=== PATIENT | female | born 1975 | race American Indian/Alaskan Native ===

== ENCOUNTER 2021-05-06 08:55 | Emergency (ER) | payer OTHER ==
[2021-05-06] MEDS ORDERED: ONDANSETRON 4 MG/2 ML INJ IV ONE (10:40)
[2021-05-06] MEDS ORDERED: SODIUM CHLORIDE 0.9% 1000 ML 1,000 ML IV ONE (10:40)
[2021-05-06] MEDS ORDERED: KETOROLAC 30 MG/1 ML INJ IV ONE (10:40)
--- NOTE | 2021-05-06 10:41 | Emergency Department Report ---
ED General Adult HPI - General Chief complaint: Pain General Stated complaint: NECK,SHOULDER,CHEST AND ARM PAIN Time Seen by Provider: 05/06/21 10:18 Source: patient Mode of arrival: Ambulatory Limitations: No Limitations - History of Present Illness Initial comments: 46-year-old female presents to the ER today with multiple complaints. Patient states that she is here because she has been having pain in her left shoulder which has been ongoing for the past year. She states that she recently moved here from [place] but while she was in [place] she was going to the hospital for her pain and they would typically tell it is related to a pulled muscle. She states that she has been doing massages and stretches but the pain seems to be persistent. She states that they did tell her back in [place] that this pain could be related to a nerve but she did never give her referral to an credit collection specialist. She states that she is concerned today because her left trapezius muscle area feels hard. She reports increased pain with movement of her shoulder and movement of her neck. She reports no radiating pain down into her arm, no numbness, tingling or weakness. She reports no chest pain or shortness of breath. Patient also complains of left breast feeling maguire and appears to be more swollen compared to her right breast. She states that she noticed it 2 days ago. She denies any pain to the breast or any discoloration or nipple discharge. She states that she last had a mammogram 2 years ago and it was within normal limits. She states that she does not currently have an [facility] locally since she moved here. She states that she is also concerned about diverticulitis is back. She states that she had a flareup of diverticulitis 2 years ago and had a colon resection. She states that since last week she has been having diffuse abdominal pain which has been constant and also she has not had a bowel movement for 5 days. She states that she does have a history of constipation, but she has never gone that long without a bowel movement. She reports nausea but no vomiting. She denies any UTI symptoms or any abnormal vaginal symptoms. She is status post complete hysterectomy. Past medical history significant for hyperlipidemia. She also reports history of CAD, she had a heart cath 3 years ago which showed minor coronary artery disease. She states that she is not currently taking any aspirin because she was told to stop by her primary care doctor in [place] couple years ago but she is not sure exactly why. She denies any other significant history. MD Complaint: Left shoulder pain/Left breast swelling/abdominal pain -: month(s) - Related Data Previous Rx's Medication Instructions Recorded Last Taken Type Ketorolac [Toradol] 10 mg PO Q6H PRN #20 tablet 05/06/21 Unknown Rx Lidocaine [Lidoderm] 1 each TP Q12HR #10 adh..patch 05/06/21 Unknown Rx methOCARBAMOL [Robaxin TAB] 750 mg PO Q8H PRN #30 tablet 05/06/21 Unknown Rx Allergies Allergy/AdvReac Type Severity Reaction Status Date / Time No Known Allergies Allergy Unverified 05/06/21 09:03 ED Review of Systems ROS: Stated complaint: NECK,SHOULDER,CHEST AND ARM PAIN Other details as noted in HPI Comment: All other systems reviewed and negative Constitutional: denies: chills, fever Eyes: denies: eye pain, eye discharge, vision change ENT: denies: ear pain, throat pain, dental pain, hearing loss, epistaxis, congestion Respiratory: denies: cough, shortness of breath, SOB with exertion, SOB at rest, wheezing Cardiovascular: denies: chest pain, palpitations, dyspnea on exertion, edema, syncope, paroxysmal nocturnal dyspnea Endocrine: no symptoms reported Gastrointestinal: abdominal pain, nausea. denies: diarrhea, constipation, hematemesis, melena, hematochezia Genitourinary: denies: urgency, dysuria, frequency, hematuria, discharge, abnormal menses, dyspareunia Musculoskeletal: denies: back pain, joint swelling, arthralgia, myalgia Skin: as per HPI. denies: change in color, change in hair/nails, pruritus Neurological: denies: headache, weakness, numbness, paresthesias, confusion, abnormal gait, vertigo Psychiatric: denies: anxiety, depression, auditory hallucinations, visual hallucinations, homicidal thoughts, suicidal thoughts Hematological/Lymphatic: denies: easy bleeding, easy bruising, swollen glands ED Past Medical Hx - Past Medical History Previous Medical History?: Yes Additional medical history: Diverticulitis, CAD, frequent UTI, Diverticular bleed and diverticulosis - Surgical History Past Surgical History?: Yes Hx Cholecystectomy: Yes Additional Surgical History: Colon resection, Hysterectomy, Tubaligation - Social History Smoking Status: Current Some Day Smoker Substance Use Type: Alcohol, Marijuana - Medications Home Medications: Home Medications Medication Instructions Recorded Confirmed Last Taken Type Ketorolac [Toradol] 10 mg PO Q6H PRN #20 tablet 05/06/21 Unknown Rx Lidocaine [Lidoderm] 1 each TP Q12HR #10 adh..patch 05/06/21 Unknown Rx methOCARBAMOL [Robaxin TAB] 750 mg PO Q8H PRN #30 tablet 05/06/21 Unknown Rx ED Physical Exam - General Limitations: No Limitations General appearance: alert, in no apparent distress - Head Head exam: Present: atraumatic, normocephalic, normal inspection - Eye Eye exam: Present: normal appearance, PERRL, EOMI Pupils: Present: normal accommodation - ENT ENT exam: Present: normal exam, mucous membranes moist, TM's normal bilaterally - Neck Neck exam: Present: normal inspection, full ROM, other (There is tenderness to palpation over the left trapezius with some muscle spasm noted. Patient has no vertebral tenderness to the cervical spine. She has full range of motion of the neck.). Absent: tenderness - Respiratory Respiratory exam: Present: normal lung sounds bilaterally, other (Breast exam-no apparent mass, skin discoloration, dimpling, or nipple discharge or erythema or bruising noted to either breast. There is no tenderness to palpation. No significant change in size apparent on exam.). Absent: respiratory distress, wheezes, rales, rhonchi, stridor, chest wall tenderness - Cardiovascular Cardiovascular Exam: Present: regular rate, normal rhythm, normal heart sounds - GI/Abdominal GI/Abdominal exam: Present: soft, tenderness (Tenderness to palpation to the left lower quadrant with some mild guarding but no rebound or rigidity.). Absent: distended, guarding, rebound - Neurological Exam Neurological exam: Present: alert, oriented X3, CN II-XII intact, normal gait - Psychiatric Psychiatric exam: Present: normal affect, normal mood - Skin Skin exam: Present: intact ED Course Vital Signs 05/06/21 05/06/21 05/06/21 09:03 15:04 15:09 Temperature 98.9 F Pulse Rate 78 75 Respiratory 20 16 Rate Blood Pressure 142/90 133/96 Blood Pressure 133/96 [Right] O2 Sat by Pulse 100 98 Oximetry ED Medical Decision Making - Lab Data Result diagrams: 05/06/21 10:40 05/06/21 10:50 - Radiology Data Radiology results: report reviewed Patient: MEKA SMITH MR#: [id number] 46 : 1975 Acct:[id number] Age/Sex: 46 / F ADM Date: 05/06/21 Loc: ED Attending Dr: Ordering Physician: LES LACEY Date of Service: 05/06/21 Procedure(s): CT abdomen pelvis w con Accession Number(s): [id number] cc: LES LACEY CT ABDOMEN AND PELVIS WITH CONTRAST INDICATION / CLINICAL INFORMATION: Abdominal pain. TECHNIQUE: Axial CT images were obtained through the abdomen and pelvis after Omnipaque 300, [address] scans at this location are performed using CT dose reduction for ALARA by means of automated exposure control. COMPARISON: None available. FINDINGS: LOWER CHEST: No significant abnormality. LIVER: One CM lesion hepatic dome with questionable peripheral nodular enhancement. GALLBLADDER: Surgically absent. BILE DUCTS: No significant abnormality. PANCREAS: No significant abnormality. SPLEEN: No significant abnormality. ADRENALS: No significant abnormality. RIGHT KIDNEY / URETER: No significant abnormality. LEFT KIDNEY / URETER: No significant abnormality. STOMACH / SMALL BOWEL: No significant abnormality. COLON: Diverticulosis greatest at the descending and sigmoid colon's without active inflammation. APPENDIX: No significant abnormality. PERITONEUM: No free fluid. No free air. No fluid collection. LYMPH NODES: No significant adenopathy. VASCULAR STRUCTURES: No significant abnormality. URINARY BLADDER: No significant abnormality. REPRODUCTIVE ORGANS: Uterus absent. 5.7 cm cyst left ovary. ADDITIONAL FINDINGS: None. SKELETAL SYSTEM: No significant abnormality. IMPRESSION: 1. 5.7 cm cyst left ovary. 2. Noninflamed colonic diverticulosis. 3. Probable small hepatic hemangioma. Signer Name: Doug Barry MD Signed: 05/06/2021 2:17 PM Workstation Name: [id number] Transcribed By: ES Dictated By: Doug Barry MD Electronically Authenticated By: Doug Barry MD Signed Date/Time: 05/06/211416 DD/ 11 TD/TT: - Medical Decision Making Patient presents to the ER with multiple complaints. She is complaining of pain to her left shoulder but on exam she points to her left trapezius area which she has had chronically for over a year. She denies any associated chest pain, shortness of breath, focal weakness, numbness or tingling, headache or dizziness with her pain. She also complained of swelling and fullness in her left breast x2 days but no pain, discoloration to the skin or nipple discharge. She was also concerned that she may have another flareup of her diverticulitis as she has been having pain to her left abdomen. Patient recently moved here from [place] and currently does not have any providers. 1453: Labs reviewed -CBC/CMP and urinalysis unremarkable. CT abdomen pelvis with IV contrast shows diverticulosis but no diverticulitis. He also shows that patient has a 5.7 cm left ovarian cyst. Patient initially stated that she had a complete hysterectomy, but according to the CT she still has ovaries. Patient currently resting in the bed. She is not in any acute distress. She is not toxic or ill-appearing. She is neurologically intact. Vital signs are stable. Discussed lab and CT results with patient. She states that when they did her colon resection as a result of complication of her diverticulitis, the surgeon was supposed to remove her left ovary but apparently. Informed patient that she will need to follow-up with [facility] for further evaluation and treatment of this left ovarian cyst. And also she will need to follow-up with [facility] for mammogram of her breast. Also recommend that she needs to follow-up with credit collection specialist or a clinical services specialist for this chronic pain in her left trapezius area as it could be related to either degenerative disc disease in her neck resulting in any nerve impingement or could be related to some issues with her shoulder and she will need outpatient MRI. Patient will also be given referral to local primary care doctor for routine follow-up. Patient expressed understanding of instructions and agree with plan. Patient stable at time of discharge. Critical care attestation.: If time is entered above; I have spent that time in minutes in the direct care of this critically ill patient, excluding procedure time. ED Disposition Clinical Impression: Ovarian cyst, left, Swelling of breast, Trapezius muscle spasm Disposition: DC-01 TO HOME OR SELFCARE Is pt being admited?: No Does the pt Need Aspirin: No Condition: Stable Instructions: Muscle Cramps and Spasms, Breast Self-Awareness, [id number], Breast Tenderness, Ovarian Cyst Additional Instructions: It is important that you follow-up with credit collection specialist for further evaluation of your chronic pain in your left neck/left shoulder area as you may need an MRI. Currently you do have a muscle spasm to the left trapezius muscle and you will be prescribed Robaxin and lidocaine patches to hopefully help but again most importantly it is important that you follow-up with credit collection specialist for further evaluation. Your CT abdomen pelvis shows that you have a 5.7 left ovarian cyst. Currently you have diverticulosis but no diverticulitis. It is important that you follow- up with the [facility] listed on your discharge instructions for further evaluation of the cyst and also for an outpatient mammogram for the left breast discomfort. A primary care doctor will also be listed on your discharge instructions for routine care and follow-up. Return to the ER if your symptoms changes or worsens in any way. Prescriptions: Lidocaine [Lidoderm] 1 each TP Q12HR #10 adh..patch methOCARBAMOL [Robaxin TAB] 750 mg PO Q8H PRN #30 tablet PRN Reason: Muscle Spasm Ketorolac [Toradol] 10 mg PO Q6H PRN #20 tablet PRN Reason: Pain Referrals: HUGH CHÁVEZ MD [Staff Physician] - 3-5 Days (OBGYN) DUKE JENKINS MD [Staff Physician] - 3-5 Days (OBGYN) [facility] [Provider Group] - 3-5 Days (OBGYN ) MAR MATSO MD [Staff Physician] - 3-5 Days (note specialist) [facility] [Provider Group] - 3-5 Days (Primary care physician) SIMÓN DUMOTN MD [Staff Physician] - 3-5 Days (Primary care physician) Time of Disposition: 14:48
[2021-05-06 11:26] LABS: Alanine Aminotransferase 17 units/L (7-56); Albumin 4.5 g/dL (3.9-5); Blood Urea Nitrogen 9 mg/dL (7-17); Calcium 9.7 mg/dL (8.4-10.2); Hemolysis Index 61
[2021-05-06 11:35] LABS: BUN/Creatinine Ratio 13; Bilirubin,Direct < 0.2 mg/dL (0-0.2)
[2021-05-06 11:44] LABS: Basophils # (Auto) 0.1 K/mm3 (0.0-0.1); Basophils % (Auto) 0.7 % (0.0-1.8); Eosinophils # (Auto) 0.2 K/mm3 (0.0-0.4); Eosinophils % (Auto) 2.2 % (0.0-4.3); Hematocrit 43.5 % (30.3-42.9); Hemoglobin 15.1 gm/dl (10.1-14.3); Lymphocytes % (Auto) 45.2 % (13.4-35.0); Mean Corpuscular HGB Conc 35 % (30-34); Mean Corpuscular Volume 93 fl (79-97); Monocytes # (Auto) 0.5 K/mm3 (0.0-0.8); Monocytes % (Auto) 5.1 % (0.0-7.3); Platelet Count 294 K/mm3 (140-440); Red Cell Distribution Width 14.6 % (13.2-15.2)
[2021-05-06 12:15] LABS: Bacteria,Urine 1+ /HPF (Negative); Bilirubin,Urine NEG (Negative); Blood,Urine NEG (Negative); Color,Urine Yellow (Yellow); Protein,Urine <15 mg/dL mg/dL (Negative); Urobilinogen,Urine < 2.0 mg/dL (<2.0)
[2021-05-06 12:20] LABS: WBC,Urine < 1.0 /HPF (0.0-6.0)
[2021-05-06 15:09] VITALS: BP 133/96
== END 2021-05-06 15:09 | disposition home or self-care (01) ==
LOC: ED 08:55
DX: N83.202 Unspecified ovarian cyst, left side (principal); M62.838 Other muscle spasm; M25.512 Pain in left shoulder; R22.2 Localized swelling, mass and lump, trunk; F17.200 Nicotine dependence, unspecified, uncomplicated; F12.90 Cannabis use, unspecified, uncomplicated; Z72.89 Other problems related to lifestyle; Z98.890 Other specified postprocedural states; Z98.51 Tubal ligation status; Z79.899 Other long term (current) drug therapy
CPT/HCPCS: 36415; 74177; 80048; 80076; 81001; 83690; 85025; 96361; 96374; 96375; 99284; J1885; J2405; J7030; Q9967

== ENCOUNTER 2021-11-25 11:16 | Emergency (ER) | payer OTHER ==
--- NOTE | 2021-11-25 11:58 | Emergency Department Report ---
ED Allergic Reaction HPI - General Chief complaint: Allergic Reaction Stated complaint: ALLERGIC REACTION Time Seen by Provider: 11/25/21 11:49 Source: patient Mode of arrival: Ambulatory Limitations: No Limitations - History of Present Illness Initial Comments: Patient presents secondary to an allergic reaction. She used a hair dye that caused her to break out. She noticed hives and swelling around her scalp and face. This is progressively worsened despite Benadryl. She has no trouble breathing or swallowing. She is not wheezing. She states that she is itching. She is never had this problem before. This started 1 to 2 days ago. - Related Data Previous Rx's Medication Instructions Recorded Last Taken Type Ketorolac [Toradol] 10 mg PO Q6H PRN #20 tablet 05/06/21 Unknown Rx Lidocaine [Lidoderm] 1 each TP Q12HR #10 adh..patch 05/06/21 Unknown Rx methOCARBAMOL [Robaxin TAB] 750 mg PO Q8H PRN #30 tablet 05/06/21 Unknown Rx Famotidine [Pepcid] 20 mg PO BID #10 tablet 11/25/21 Unknown Rx predniSONE [Deltasone] 50 mg PO QDAY #5 tab 11/25/21 Unknown Rx Allergies Allergy/AdvReac Type Severity Reaction Status Date / Time No Known Allergies Allergy Unverified 05/06/21 09:03 ED Review of Systems ROS: Stated complaint: ALLERGIC REACTION Other details as noted in HPI Comment: All other systems reviewed and negative Constitutional: denies: fever Eyes: denies: eye pain, vision change ENT: denies: throat pain Respiratory: denies: shortness of breath Cardiovascular: denies: chest pain Gastrointestinal: denies: nausea, vomiting Musculoskeletal: denies: joint swelling Skin: as per HPI Neurological: denies: headache Hematological/Lymphatic: denies: easy bruising ED Past Medical Hx - Past Medical History Previous Medical History?: No Additional medical history: Diverticulitis, CAD, frequent UTI, Diverticular bleed and diverticulosis - Surgical History Past Surgical History?: Yes Hx Cholecystectomy: Yes Additional Surgical History: Colon resection, Hysterectomy, Tubaligation - Family History Family history: no significant - Social History Smoking Status: Current Some Day Smoker Substance Use Type: Alcohol, Marijuana - Medications Home Medications: Home Medications Medication Instructions Recorded Confirmed Last Taken Type Ketorolac [Toradol] 10 mg PO Q6H PRN #20 tablet 05/06/21 Unknown Rx Lidocaine [Lidoderm] 1 each TP Q12HR #10 adh..patch 05/06/21 Unknown Rx methOCARBAMOL [Robaxin TAB] 750 mg PO Q8H PRN #30 tablet 05/06/21 Unknown Rx Famotidine [Pepcid] 20 mg PO BID #10 tablet 11/25/21 Unknown Rx predniSONE [Deltasone] 50 mg PO QDAY #5 tab 11/25/21 Unknown Rx ED Physical Exam - General Limitations: No Limitations, Other (Pulse ox noted and normal) General appearance: alert, in no apparent distress - Head Head exam: Present: other (Generalized hives about the scalp and hairline. There is facial edema involving the periorbital areas) - Eye Eye exam: Present: EOMI, periorbital swelling (Bilateral), other (Chemosis). Absent: scleral icterus - ENT ENT exam: Present: normal orophraynx. Absent: normal external ear exam - Neck Neck exam: Present: normal inspection. Absent: meningismus - Respiratory Respiratory exam: Present: normal lung sounds bilaterally. Absent: respiratory distress, wheezes - Cardiovascular Cardiovascular Exam: Present: regular rate, normal rhythm - GI/Abdominal GI/Abdominal exam: Present: soft - Extremities Exam Extremities exam: Present: normal capillary refill - Back Exam Back exam: Present: full ROM - Neurological Exam Neurological exam: Present: alert, oriented X3, CN II-XII intact, normal gait. Absent: motor sensory deficit - Psychiatric Psychiatric exam: Present: normal affect, normal mood - Skin Skin exam: Present: warm, dry ED Course Vital Signs 11/25/21 11/25/21 11:44 12:19 Temperature 98.4 F 98.0 F Pulse Rate 84 78 Respiratory 16 16 Rate Blood Pressure 118/97 127/82 [Right] O2 Sat by Pulse 98 98 Oximetry - Reevaluation(s) Reevaluation #1: 11/25/21 13:44 Patient was discharged. ED Medical Decision Making - Medical Decision Making Patient presents with a an allergic reaction to hair shampoo or dye. She has certainly evidence of hives without respiratory component. She was treated symptomatically and referred for outpatient evaluation and follow-up. Critical Care Time: No Critical care attestation.: If time is entered above; I have spent that time in minutes in the direct care of this critically ill patient, excluding procedure time. ED Disposition Clinical Impression: Allergic reaction Qualifiers: Encounter type: initial encounter Qualified Code(s): T78.40XA - Allergy, unspecified, initial encounter Disposition: HOME / SELF CARE / HOMELESS Is pt being admited?: No Condition: Stable Instructions: Allergies, Adult Additional Instructions: DO NOT USE THAT HAIR PRODUCT AGAIN. USE ICE FOR SWELLING. CONTINUE BENADRYL AT HOME. SEE YOUR REGULAR DOCTOR FOR RECHECK. Prescriptions: predniSONE [Deltasone] 50 mg PO QDAY #5 tab Famotidine [Pepcid] 20 mg PO BID #10 tablet Referrals: PRIMARY CARE, [Primary Care Provider] - 3-5 Days
--- NOTE | 2021-11-25 12:04 | Emergency Department Report ---
HPI - General Chief Complaint: Allergic Reaction Time Seen by Provider: 11/25/21 11:49 - HPI HPI: This is a duplicate document. Please ignore this document. ED Past Medical Hx - Past Medical History Previous Medical History?: No Additional medical history: Diverticulitis, CAD, frequent UTI, Diverticular bleed and diverticulosis - Surgical History Past Surgical History?: Yes Hx Cholecystectomy: Yes Additional Surgical History: Colon resection, Hysterectomy, Tubaligation - Social History Smoking Status: Current Some Day Smoker Substance Use Type: Alcohol, Marijuana - Medications Home Medications: Home Medications Medication Instructions Recorded Confirmed Last Taken Type Ketorolac [Toradol] 10 mg PO Q6H PRN #20 tablet 05/06/21 Unknown Rx Lidocaine [Lidoderm] 1 each TP Q12HR #10 adh..patch 05/06/21 Unknown Rx methOCARBAMOL [Robaxin TAB] 750 mg PO Q8H PRN #30 tablet 05/06/21 Unknown Rx Famotidine [Pepcid] 20 mg PO BID #10 tablet 11/25/21 Unknown Rx predniSONE [Deltasone] 50 mg PO QDAY #5 tab 11/25/21 Unknown Rx ED Review of Systems ROS: Stated complaint: ALLERGIC REACTION Other details as noted in HPI Physical Exam - Physical Exam Vital Signs: Vital Signs 11/25/21 11:44 Temperature 98.4 F Pulse Rate 84 Respiratory 16 Rate Blood Pressure 118/97 [Right] O2 Sat by Pulse 98 Oximetry ED Course Vital Signs 11/25/21 11:44 Temperature 98.4 F Pulse Rate 84 Respiratory 16 Rate Blood Pressure 118/97 [Right] O2 Sat by Pulse 98 Oximetry Critical Care Time: No Critical care attestation.: If time is entered above; I have spent that time in minutes in the direct care of this critically ill patient, excluding procedure time. ED Disposition Clinical Impression: Allergic reaction Qualifiers: Encounter type: initial encounter Qualified Code(s): T78.40XA - Allergy, unspecified, initial encounter Disposition: 01 HOME / SELF CARE / HOMELESS Is pt being admited?: No Condition: Stable Instructions: Allergies, Adult Additional Instructions: DO NOT USE THAT HAIR PRODUCT AGAIN. USE ICE FOR SWELLING. CONTINUE BENADRYL AT HOME. SEE YOUR REGULAR DOCTOR FOR RECHECK. Prescriptions: predniSONE [Deltasone] 50 mg PO QDAY #5 tab Famotidine [Pepcid] 20 mg PO BID #10 tablet Referrals: PRIMARY CARE, [Primary Care Provider] - 3-5 Days
[2021-11-25 12:21] VITALS: BP 127/82
== END 2021-11-25 12:24 | disposition home or self-care (01) ==
LOC: ED 11:16
DX: T78.40XA Allergy, unspecified, initial encounter (principal); F17.200 Nicotine dependence, unspecified, uncomplicated; F12.10 Cannabis abuse, uncomplicated; Y92.89 Other specified places as the place of occurrence of the external cause
CPT/HCPCS: 99282